=== PATIENT | male | born 2000 | race African-American/Black ===

== ENCOUNTER 2025-10-09 10:49 | Outpatient (CLI) | payer MEDICAID, OTHER ==
--- NOTE | 2025-10-09 13:00 | RADIOLOGY REPORT ---
CLINICAL HISTORY: Right knee pain. COMPARISON: None TECHNIQUE: Multisequence multiplanar MRI images of the right knee were obtained without contrast. FINDINGS: Cruciate ligaments: ACL and PCL are intact. Extensor mechanism: Quadriceps mechanism and patellar tendon are intact. Collateral ligaments: Medial and lateral collateral ligaments are intact and otherwise unremarkable. Menisci: Blunting of the free edge of the posterior horn of the lateral meniscus, may be due to free edge fraying or small free edge tear involving zone 3. Medial meniscus is intact. Cartilage: Deep chondral fissuring and possible delamination at the central trochlea. Bones: No acute fracture or focal marrow contusion. Joint fluid: Small joint effusion. Other: No other significant findings. IMPRESSION: 1. Focal blunting of the free edge of the posterior horn of the lateral meniscus, may be due to free edge fraying or small free edge tear. 2. Deep chondral fissuring and possible delamination at the central trochlea.
== END 2025-10-09 23:59 | disposition home or self-care (01) ==
LOC: MRI 10:49
PROVIDERS: ATTEND Family Medicine Sports Medicine
DX: S83.281A Other tear of lateral meniscus, current injury, right knee, initial encounter (principal); M25.561 Pain in right knee; M77.9 Enthesopathy, unspecified; M23.302 Other meniscus derangements, unspecified lateral meniscus, unspecified knee; X58.XXXA Exposure to other specified factors, initial encounter; Y93.89 Activity, other specified; Y92.89 Other specified places as the place of occurrence of the external cause; Y99.8 Other external cause status
CPT/HCPCS: 73721